=== PATIENT | female | born 1990 | race Caucasian/White ===

== ENCOUNTER 2024-11-08 05:21 | Observation (INO) | payer BC, SELFPAY ==
[2024-11-08] VITALS (7 sets, daily range): BP systolic 104–131; BP diastolic 60–89; PULSE 62–86; RESP 14–28; TEMP 36.1–36.8; O2SAT 99–100; BMI 24.9
--- NOTE | ~2024-11-08 | CT_ITS ---
CLINICAL INDICATION: Epigastric pain COMPARISON: None. TECHNIQUE: Multiple contiguous axial images of the abdomen and pelvis were performed following the ad ministration of with 100 mL Omnipaque-350 intravenous contrast The dose-length product (DLP) was 343.92 mGy-cm. Automated exposure control and iterative reconstruction technique were employed. FINDINGS/OBSERVATIONS: Visualized lower thorax: The bilateral lung bases are clear. The heart is of normal size, without pericardial effusion. Small hiatal hernia is present. Liver: The liver demonstrates homogeneous enhancement and is borderline enlarged measuring 19 cm in longitud inal dimension. Gallbladder and biliary system: The gallbladder is distended, with trace surrounding inflammatory change. The common bile duct is markedly enlarged for a patient of this age measuring 10.3 mm in greatest evelyn iber without a discrete stone identified. Pancreas: The pancreas enhances homogeneously without ductal dilatation. Spleen: The spleen enhances homogeneously and is not enlarged. Kidneys: The bilateral kidneys enhance symmetrically without hydronephrosis or renal calculi. Adrenal glands: Unremarkable. Gastrointestinal tract: Mural thickening within the stomach, likely secondary to underdistention. Fecal stasis within the colon. Appendix: The air-filled appendix is of normal caliber (axial series, images 109 through 124) Vasculature: Unremarkable. Lymph nodes: No pathologically enlarged or morphologically suspicious lymph nodes within the retroperitoneum or at the root of the mesentery. Pelvic structures: The bladder is minimally distended, and otherwise unremarkable. The uterus is anteverted and anteflexed. A well-circumscribed 2 cm focus of fluid attenuation, suggesting a right ovarian cyst not an uncommon finding in a patient of this age Body wall and musculoskeletal: Small fat-containing umbilical hernia. No significant degenerative disease within the lower thoracic or lumbosacral spine. IMPRESSION: Gallbladder distention with dilatation of the common bile duct (possibly artifactual) for which confi rmation with ultrasound is needed. Reviewed, dictated and finalized at location [] IMPRESSION: Gallbladder distention with dilatation of the common bile duct (possibly artifa ctual) for which confirmation with ultrasound is needed.
--- NOTE | ~2024-11-08 | US_ITS ---
EXAMINATION: US abdomen limited DATE: 11/08/2024 08:19 INDICATION: Right upper quadrant abdominal pain TECHNIQUE: Multiple grayscale and Doppler ultrasound images of the abdomen were obtained. COMPARISON: None FINDINGS: The pancreatic head and body are normal in appearance. The pancreatic tail is not visualized. Liver has normal echogenicity and contour, with a smooth surface. No liver lesion identified. No intrahepat ic biliary duct dilation suspected. Portal venous flow was seen in the hepatopetal, normal direction and has normal Doppler waveform. Multiple echogenic and shadowing gallstones in the dependent aspect of the gallbladder which appears otherwise normal with no evident wall thickening. The common bile du ct measures 6 mm in diameter which is at the upper limits of normal. Sonographic Ness sign was repo rted as negative by the geological science teacher although patient was reportedly on analgesics which decreases sen sitivity. Visualized portion of the right kidney demonstrates normal contour and echogenicity with no hydronephrosis. IMPRESSION: 1. Cholelithiasis within an otherwise normal-appearing gallbladder. There is a significant negative s onographic Ness's sign however sensitivity is decreased by analgesics and if there is increased cli nical concern for acute cholecystitis could consider HIDA scan for further evaluation. 2. Common bile duct at the upper limits of normal. Correlate with liver function tests and could cons ider MRCP for further evaluation as clinically indicated. Reviewed, dictated and finalized at location A. IMPRESSION: 1. Cholelithiasis within an otherwise normal-appearing gallbladder. There is a significant negative sonographic Ness's sign however sensitivity is decreased by analgesics and if there is increased clinical concern for acute cholecystit is could consider HIDA scan for further evaluation. 2. Common bile duct at the upper limits of normal. Correlate with liver functio n tests and could consider MRCP for further evaluation as clinically indicated.
--- OUTSIDE RECORDS SUMMARY | 2024-11-08 05:23 | XMS_ITS | Clinical Summary ---
Author Organization [facility] Address [address] [place] [address] Care Team Providers Care S[employer] Enterprise Portal Consultant Name Role Phone Ranjit Herrera MD Primary Care Provider [phone]- [phone] Allergies No known active allergies Medications etonogestreL (Nexplanon) 68 mg Implant Inject by subcutaneous injection. Active famotidine (PEPCID) 20 mg tabletIndicatio ns:Gastroesopha geal reflux disease without esophagitis Take 1 Tablet (20 mg) by mouth 2 times daily. 200 Tablet 3 12/08/19 24 Active FLUoxetine (PROzac) 40 mg capsuleIndicati ons:Mild recurrent major depression Take 1 Capsule (40 mg) by mouth daily. 100 Capsule 1 08/27/19 25 Active FLUoxetine (PROzac) 20 mg capsule Take 1 Capsule (20 mg) by mouth daily. Add to 40mg daily 100 Capsule 3 08/27/19 25 Active dextroamphetami ne-amphetamine (ADDERALL) 20 mg tabletIndicatio ns:Attention deficit disorder (ADD) in adult Take 1 Tablet (20 mg) by mouth 2 times daily. Dose change Max Daily Amount: 40 mg 60 Tablet 10/31/19 25 Active dextroamphetami ne-amphetamine (ADDERALL) 20 mg tabletIndicatio ns:Attention deficit disorder (ADD) in adult Take 1 Tablet (20 mg) by mouth 2 times daily. Dose change Max Daily Amount: 40 mg 60 Tablet 09/25/19 25 025 Discontin ued(Reord er) Active Problems Patient Care Coordination No te Formatting of this note migh t be different from the original. Physical - 01/27 Steel Erector - Hulsen Problem Noted Date Diagnosed Date Attention deficit disorder (ADD) in adult 2024 Mild recurrent major depression 10/07/2016 Tobacco use 10/07/2016 Resolved Problems Problem Noted Date Diagnosed Date Resolved Date Overweight (BMI 25.0-29.9) 10/09/2017 0 01/19/2021 Encounters Date Type Department Care Team Description 10/30/[address] [place] [address] Ranjit Herrera MD Attention deficit disorder (ADD) in adult 10/22/2024 External Device Data STL ABSTRACTION Provider, Abstract 09/25/2024 External Device Data STL ABSTRACTION Provider, Abstract 09/25/2024 External Device Data STL ABSTRACTION Provider, Abstract 09/24/2024 [facility] Internal Medicine [facility] [id number] [place] [id number] Ranjit Herrera MD Attention deficit disorder (ADD) in adult 09/14/2024 External Device Data STL ABSTRACTION Provider, Abstract 09/13/2024 External Device Data STL ABSTRACTION Provider, Abstract 09/11/2024 External Device Data STL ABSTRACTION Provider, Abstract 08/28/2024 External Device Data STL ABSTRACTION Provider, Abstract 08/27/2024 2:00 PM CLINICAL SERVICES DIRECTOR Video Visit [address] [place] [address] Ranjit Herrera MD Mild recurrent major depression (Primary Dx); Wellness examination; Declined influenza vaccine; Tobacco use; Acute bronchitis, unspecified organism; Attention deficit disorder (ADD) in adult 08/13/2024 [facility] Internal Medicine [facility] [id number] [address] Ranjit Herrera MD Attention deficit disorder (ADD) in adult from Last 3 Months Immunizations Immunization Administration Dates Next Due (PFIZER)(12 YR UP) COVID-19 VACCINE - EMERGENCY USE AUTHORIZATION, MRNA, [id number](PF) 30 MCG/0.3 ML IM SUSP 04/30/2021,04/09/2021 Family History Medical History Relation Name Comments Hypertension Brother 2 Alex Hypertension Father Depression Mother Angela Hypertension Mother Angela Thyroid Disease Mother Angela Relation Name Status Comments Brother 1 Alive Brother 2 Alex Father Alive Maternal Grandfather Maternal Grandmother Mother Angela Alive Paternal Grandfather Paternal Grandmother Social History Tobacco Use Types Packs/Day Years Used Date Smoking Tobacco: Former Cigarettes Passive Smoke Exposure: Past Smokeless Tobacco: Never Tobacco Cessation:Counseling Given: Yes Alcohol Use Standard Drinks/Week Comments Not Currently 1 (1 standard drink = 0.6 oz pur e alcohol) Comments No Sex and Gender Information Value Date Recorded Sex Assigned at Not on file Legal Sex Female 4:48 PM CLINICAL SERVICES DIRECTOR Gender Identity Not on file Sexual Orientation Not on file Last Filed Vital Signs Vital Sign Reading Time Taken Comments Blood Pressure 92/70 08/30/2023 4:03 PM CLINICAL SERVICES DIRECTOR Pulse 103 08/30/2023 4:03 PM CLINICAL SERVICES DIRECTOR Temperature 37 C (98.6 F) 08/30/2023 4:03 PM CLINICAL SERVICES DIRECTOR Respiratory Rate - - Oxygen Saturation 96% 08/30/2023 4:03 PM CLINICAL SERVICES DIRECTOR Inhaled Oxygen Concentration - - Weight 80.3 kg (177 lb) 08/27/2024 1:48 PM CLINICAL SERVICES DIRECTOR Height 167.6 cm (5' 6 ) 08/27/2024 1:48 PM CLINICAL SERVICES DIRECTOR Body Mass Index 28.57 08/27/2024 1:48 PM CLINICAL SERVICES DIRECTOR Plan of Treatment Health Maintenance Due Date Last Done Comments DTAP/TDAP/TD VACCINES (1 - Tdap) 2010 HEPATITIS B VACCINES (1 of 3 - 19+ 3-dose series) 2010 HPV/Cotest (21-29) 01/10/2012 HPV/Cotest (30-65) 2021 CERVICAL CANCER SCREENING 04/09/2023 PAP SMEAR 04/09/2023 04/09/2020 (Prev iously completed), 01/08/2016 COVID-19 Vaccine (3 - 2023- season) 2024 04/30/2021, 04/09/2021 Preventative Visit- Commercial 07/10/2024 01/19/2021, 11/20/2018, 10/09/2017, Additional history exists INFLUENZA VACCINE Completed 08/27/2024 HPV VACCINES Aged Out No longer eligi ble based on patient's age to complete this topic Insurance BCBS BLUE ACCESS/TRUE BLUE PPO Care Teams S[employer] Enterprise Portal Consultant Relationship Specialty Start Date End Date Ranjit Herrera MD PCP - General Internal Medicine 10/07/16
[2024-11-08 05:57] LABS: Basophils Absolute Auto 0.1 K/mm3 (0.0-0.1); Basophils Percent Auto 0.9 % (0.2-1.2); Eosinophils Absolute Auto 0.5 K/mm3 (0-0.3); Eosinophils Percent Auto 4.9 % (0-4.4); Hematocrit 38.7 % (37.0-47.0); Hemoglobin 12.1 g/dL (12.0-15.0); Immature Granulocyte Absolute 0.03 K/mm3 (0.00-0.031); Immature Granulocyte Percent A 0.3 % (0-0.5); Lymphocytes Absolute Auto 2.58 K/mm3 (0.9-3.2); Lymphocytes Percent Auto 27.5 % (18.3-44.2); Mean Corpuscular HGB Conc 31.3 g/dl (32-36); Mean Corpuscular Hemoglobin 28.9 pg (26-34); Mean Corpuscular Volume 92.6 fl (80-100); Mean Platelet Volume 10.1 fl (7.4-10.4); Monocytes Absolute Auto 0.5 K/mm3 (0.1-0.6); Monocytes Percent Auto 5.2 % (2.6-8.5); Neutrophils Absolute Auto 5.7 K/mm3 (1.3-6.7); Neutrophils Percent Auto 61.2 % (45.5-73.1); Platelet Count Result 307 k/mm3 (150-375); Red Blood Count 4.18 M/mm3 (4.2-5.4); Red Cell Distribution Width 13.8 % (11.5-14.5); White Blood Count 9.4 K/mm3 (4.5-10.0)
--- NOTE | 2024-11-08 05:58 | PC.NURSE ---
Pt ambulatory to bathroom with steady gait.
[2024-11-08 06:07] LABS: Alanine Aminotransferase 15 U/L (6-35); Albumin Level 3.7 g/dL (3.5-5.1); Alkaline Phosphatase 73 U/L (38-126); Anion Gap 10 mmol/L (4-12); Aspartate Amino Transferase 16 U/L (14-36); Bilirubin,Total 0.3 mg/dL (0.2-1.3); Blood Urea Nitrogen 7 mg/dL (7-17); Calcium 8.7 mg/dL (8.4-10.2); Carbon Dioxide 22 mmol/L (22-30); Chloride 104 mmol/L (98-107); Estimated CRCL calculation 84 ml/min; Estimated Glomerular Filt Rate > 60; Glucose 126 mg/dL (65-110); Lipase 163 U/L (23-300); Magnesium 1.9 mg/dL (1.6-2.3); Potassium 3.1 mmol/L (3.4-5.0); Sodium 136 mmol/L (137-145)
[2024-11-08 06:12] LABS: BEDSIDEPREGUCG Negative (Negative)
[2024-11-08 06:33] LABS: Add Urine Microscopic? NO; Appearance Urine Clear (Clear); Bilirubin Urine Negative (Negative); Blood Urine Negative (Negative); Color Urine Yellow (Yellow); Glucose Urine UA Negative (Negative); Ketones Urine Negative (Negative); Leukocyte Esterase Ur Negative LEU/UL (Negative); Nitrate Urine Negative (Negative); Protein Urine Negative (Negative); Specific Grav Ur 1.016 (1.001-1.035)
[2024-11-08] MEDS: ONDANSETRON INJ 4 MG/2 ML VIAL IV PUSH (06:34)
[2024-11-08] MEDS: SODIUM CHLORIDE 0.9% IV 1,000 ML 999 ML IV CONT (06:34)
[2024-11-08] MEDS: MORPHINE SULFATE (*CRX) 4 MG/ML INJ IV PUSH (06:34)
--- OUTSIDE RECORDS SUMMARY | 2024-11-08 06:36 | XMS_ITS | Clinical Summary ---
Author Organization [facility] Address [address] [place] [address] Care Team Providers Care Ceramic Design Engineer Name Role Phone Ranjit Herrera MD Primary Care Provider [phone]- [phone] Allergies No known active allergies Medications etonogestreL [...] different from the original. Physical - 01/27 Motor Adjuster - Hulsen Problem Noted Date Diagnosed Date Attention deficit disorder (ADD) in adult 2024 Mild recurrent major depression 10/07/2016 Tobacco use 10/07/2016 Resolved Problems Problem Noted Date Diagnosed Date Resolved Date Overweight (BMI 25.0-29.9) 10/09/2017 0 01/19/2021 Encounters Date Type Department Care Team Description 10/30/[address] [place] [address] Ranjti Herrera MD Attention deficit disorder (ADD) in adult 10/22/2024 External Device Data STL ABSTRACTION Provider, Abstract 09/25/2024 External Device Data STL ABSTRACTION Provider, Abstract 09/25/2024 External Device Data STL ABSTRACTION Provider, Abstract 09/24/2024 [facility] Internal Medicine [facility] [id number] [place] [phone] Ranjit Herrera MD Attention deficit disorder (ADD) in adult 09/14/2024 External Device Data STL ABSTRACTION Provider, Abstract 09/13/2024 External Device Data STL ABSTRACTION Provider, Abstract 09/11/2024 External Device Data STL ABSTRACTION Provider, Abstract 08/28/2024 External Device Data STL ABSTRACTION Provider, Abstract 08/27/2024 2:00 PM TRASH COLLECTOR SUPERVISOR Video Visit [address] [place] [address] Ranjit Herrera MD Mild recurrent major depression (Primary Dx); Wellness examination; Declined influenza vaccine; Tobacco use; Acute bronchitis, unspecified organism; Attention deficit disorder (ADD) in adult 08/13/2024 [facility] Internal Medicine [facility] [id number] [address] Ranjit Herrera MD Attention deficit disorder (ADD) in adult from Last 3 Months Immunizations Immunization Administration Dates Next Due (PFIZER)(12 YR UP) COVID-19 VACCINE - EMERGENCY USE AUTHORIZATION, MRNA, [id number](PF) 30 MCG/0.3 ML IM SUSP 04/30/2021,04/09/2021 Family [...] on file Legal Sex Female 4:48 PM TRASH COLLECTOR SUPERVISOR Gender Identity Not on file Sexual Orientation Not on file Last Filed Vital Signs Vital Sign Reading Time Taken Comments Blood Pressure 92/70 08/30/2023 4:03 PM TRASH COLLECTOR SUPERVISOR Pulse 103 08/30/2023 4:03 PM TRASH COLLECTOR SUPERVISOR Temperature 37 C (98.6 F) 08/30/2023 4:03 PM TRASH COLLECTOR SUPERVISOR Respiratory Rate - - Oxygen Saturation 96% 08/30/2023 4:03 PM TRASH COLLECTOR SUPERVISOR Inhaled Oxygen Concentration - - Weight 80.3 kg (177 lb) 08/27/2024 1:48 PM TRASH COLLECTOR SUPERVISOR Height 167.6 cm (5' 6 ) 08/27/2024 1:48 PM TRASH COLLECTOR SUPERVISOR Body Mass Index 28.57 08/27/2024 1:48 PM TRASH COLLECTOR SUPERVISOR Plan of Treatment Health Maintenance Due Date [...] BCBS BLUE ACCESS/TRUE BLUE PPO Care Teams Ceramic Design Engineer Relationship Specialty Start Date End Date Ranjit Herrera MD PCP - General Internal Medicine 10/07/16
[2024-11-08] MEDS: FAMOTIDINE 20 MG/2 ML VIAL IV PUSH (06:51)
--- NOTE | 2024-11-08 06:52 | ED_ITS ---
HPI - Abdominal Pain General Chief Complaint: Abdominal Pain <Alla Clay MD - Last Filed: 11/08/24 19:00> Stated Complaint: abd pain <Alla Clay MD - Last Filed: 11/08/24 19:00> Time Seen by Provider: 11/08/24 05:28 <Alla Clay MD - Last Filed: 11/08/24 19:00> History of Present Illness HPI narrative: Patient is a 34-year-old female who comes to the emergency department this morning complaining of epigastric pain and right upper quadrant pain. Denies any history of gallbladder disease. Admits to nausea but denies any vomiting episodes. Denies any recent illness, fevers or chills, and denies any urinary symptoms. There are no additional modifying, alleviating, or precipitating factors at this time. <Alla Clay MD - Last Filed: 11/08/24 19:00> Related Data Home Medications: Home Medications ?Medication ?Instructions ?Recorded ?Confirmed ?Last Taken ?Type dextroamphetamine-amphetamine 20 20 mg PO DAILY 11/08/24 11/08/24 11/07/24 History mg tablet famotidine 20 mg tablet 20 mg PO DAILY 11/08/24 11/08/24 11/07/24 History fluoxetine 20 mg capsule 20 mg PO DAILY 11/08/24 11/08/24 11/07/24 History fluoxetine 40 mg capsule 40 mg PO DAILY 11/08/24 11/08/24 11/07/24 History <Alla Clay MD - Last Filed: 11/08/24 19:00> Allergies/Adverse Reactions: Allergies Allergy/AdvReac Type Severity Reaction Status Date / Time No Known Allergies Allergy Unverified 11/08/24 05:22 <Alal Clay MD - Last Filed: 11/08/24 19:00> Review of Systems 2 Review of Systems: All systems are reviewed and are negative unless stated otherwise in the HPI. <Alla Clay MD - Last Filed: 11/08/24 19:00> PMFSH Social History Social History: Social History Smoking status: Never smoker Alcohol intake: never Substance use: never Substance use type: does not use Other substance usage details: uses nicotine vape Do You Feel Safe in your Home?: Yes Lack of Transportation: No Lack of Food: Never True Current Housing: I Have Housing Concerned About Future Housing: No Difficulty Paying Gas/Electric Bills: No Difficulty Paying for Meds: No Currently Unemployed: No Education: Don't Know Difficulty w/ Childcare or Family Care: No Spiritual care concerns: No <Alla Clay MD - Last Filed: 11/08/24 19:00> Exam 2 Narrative: General: Alert, awake, afebrile, in moderate distress secondary to pain. HEENT: PERRL, no rhinorrhea, no post nasal drip, oropharynx clear. Neck: Trachea midline, no JVD, no lymphadenopathy. Cardiovascular: Regular rate and rhythm, no murmurs, rubs or gallops, no peripheral edema. Respiratory: Clear to auscultation bilaterally, no tachypnea, no wheezing, no rhonchi, no rubs, no respiratory distress. Abdomen: Soft, nontender, nondistended, no rebound, no guarding, no peritoneal signs. Musculoskeletal: No joint swelling or deformity, normal muscle tone. Skin: No rashes or petechia, no signs of infection. Psychiatric: Alert and oriented, normal behavior and judgment for situation. Neurological: Alert and oriented to person, place, and time. Follows all commands. No focal deficits, speech is clear and fluent. <Alla Clay MD - Last Filed: 11/08/24 19:00> Course Vital Signs Vital signs: Vital Signs Pulse Rate 86 11/08/24 05:30 Respiratory Rate 22 H 11/08/24 05:30 Blood Pressure 123/79 11/08/24 05:30 Pulse Oximetry 100 11/08/24 05:30 Oxygen Delivery Room Air 11/08/24 05:30 Temperature 96.9 F L 11/08/24 14:00 Pulse Rate 62 11/08/24 14:00 Respiratory Rate 16 11/08/24 14:00 Blood Pressure 105/66 11/08/24 14:00 Pulse Oximetry 100 11/08/24 14:00 Oxygen Delivery Room Air 11/08/24 18:34 <Alla Clay MD - Last Filed: 11/08/24 19:00> Vital Signs Pulse Rate 86 11/08/24 05:30 Respiratory Rate 22 H 11/08/24 05:30 Blood Pressure 123/79 11/08/24 05:30 Pulse Oximetry 100 11/08/24 05:30 Oxygen Delivery Room Air 11/08/24 05:30 Temperature 96.9 F L 11/08/24 14:00 Pulse Rate 62 11/08/24 14:00 Respiratory Rate 16 11/08/24 14:00 Blood Pressure 105/66 11/08/24 14:00 Pulse Oximetry 100 11/08/24 14:00 Oxygen Delivery Room Air 11/08/24 18:34 <Rebel Singh Dickey III, DO - Last Filed: 11/08/24 17:29> MDM - Abdominal Pain MDM Narrative Medical decision making narrative: The patient was evaluated by myself in the emergency department. History is obtained from patient who is an independent historian and physical exam was performed. External medical records were reviewed at this time. IV was established and pertinent tests were ordered. Patient was administered 4 mg of IV morphine for pain and 4 mg of IV Zofran for nausea. Laboratory results obtained revealing a potassium of 3.1 otherwise unremarkable. Patient was administered 4 mg of oral potassium at this time. Imaging studies obtained included CT abdomen pelvis with IV contrast which is currently pending. Differential diagnosis considerations include biliary colic, gastritis, take ulcer disease. Comorbidities impacting this visit include none. I have evaluated and discussed social determinants of health with the patient that could potentially impact subsequent diagnosis and treatment plans. Assumed care from Dr Clay [place] [address] shows dilated bile duct and wall thickening recommend sono. Pt requesting more pain meds. Fentanyl ordered. Sono shows gallstones but no evidence of cholecystitis. pt still uncomfortable Bile duct borderline large but lft's and lipase and wbc normal. Will give dose of toradol. Dr Rivera said if pain controlled ok to go home but if pain persists can admit to [facility] and he will consult after surgery today. Pt has decided she would like to stay due to pain. Discussed with Dr Munguia and agrees to admit. <Alla Clay MD - Last Filed: 11/08/24 19:00> The patient was evaluated by myself in the emergency department. History is obtained from patient who is an independent historian and physical exam was performed. External medical records were reviewed at this time. IV was established and pertinent tests were ordered. Patient was administered 4 mg of IV morphine for pain and 4 mg of IV Zofran for nausea. Laboratory results obtained revealing a potassium of 3.1 otherwise unremarkable. Patient was administered 4 mg of oral potassium at this time. Imaging studies obtained included CT abdomen pelvis with IV contrast which is currently pending. Differential diagnosis considerations include biliary colic, gastritis, take ulcer disease. Comorbidities impacting this visit include none. I have evaluated and discussed social determinants of health with the patient that could potentially impact subsequent diagnosis and treatment plans. assumed care from Dr Clay at [address] shows dilated bile duct and wall thickening recommend sono. pt requesting more pain meds. fentanyl ordered. sono shows gallstones but no evidence of cholecystitis. pt still uncomfortable Bile duct borderline large but lft's and lipase and wbc normal. will give dose of toradol. Dr Rivera said if pain controlled ok to go home but if pain persists can admit to [facility] and he will consult after surgery today. Pt has decided she would like to stay due to pain. discussed with Dr Munguia and agrees to admit. <Rebel Dickey III, - Last Filed: 11/08/24 17:29> Lab Data Result diagrams: 11/08/24 05:47 11/08/24 05:47 <Alla Clay MD - Last Filed: 11/08/24 19:00> Labs: Lab Results 11/08/24 11/08/24 11/08/24 Range/Units 05:47 06:05 06:10 WBC 9.4 (4.5-10.0) K/mm3 RBC 4.18 L (4.2-5.4) M/mm3 Hgb 12.1 (12.0-15.0) g/dL Hct 38.7 (37.0-47.0) % MCV 92.6 (80-100) fl MCH 28.9 (26-34) pg MCHC 31.3 L (32-36) g/dl RDW 13.8 (11.5-14.5) % Plt Count 307 (150-375) k/mm3 MPV 10.1 (7.4-10.4) fl Immature Gran % (Auto) 0.3 (0-0.5) % Neut % (Auto) 61.2 (45.5-73.1) % Lymph % (Auto) 27.5 (18.3-44.2) % [place] % (Auto) 5.2 (2.6-8.5) % Eos % (Auto) 4.9 H (0-4.4) % Baso % (Auto) 0.9 (0.2-1.2) % Lymph # (Auto) 2.58 (0.9-3.2) K/mm3 [place] # (Auto) 0.5 (0.1-0.6) K/mm3 Eos # (Auto) 0.5 H (0-0.3) K/mm3 Baso # (Auto) 0.1 (0.0-0.1) K/mm3 Abs Immat Gran (auto) 0.03 (0.00-0.031) K/mm3 Absolute Neuts (auto) 5.7 (1.3-6.7) K/mm3 Absolute Nucleated RBC 0.000 (0.0-0.012) K/mm3 Nucleated RBC % 0.0 (0.0-0.2) % Sodium 136 L (137-145) mmol/L Potassium 3.1 L (3.4-5.0) mmol/L Chloride 104 (98-107) mmol/L Carbon Dioxide 22 (22-30) mmol/L Anion Gap 10 (4-12) mmol/L BUN 7 (7-17) mg/dL Creatinine 0.77 (0.7-1.0) mg/dL Estim Creat Clear Calc 84 ml/min Estimated GFR > 60 (59 - ) Glucose 126 H (65-110) mg/dL Calcium 8.7 (8.4-10.2) mg/dL Magnesium 1.9 (1.6-2.3) mg/dL Total Bilirubin 0.3 (0.2-1.3) mg/dL AST 16 (14-36) U/L ALT 15 (6-35) U/L Alkaline Phosphatase 73 (38-126) U/L Total Protein 7.0 (6.3-8.2) g/dL Albumin 3.7 (3.5-5.1) g/dL Lipase 163 (23-300) U/L Urine Color Yellow (Yellow) Urine Appearance Clear (Clear) Urine pH 6.0 (5.0-9.0) Ur Specific Scenic 1.016 (1.001-1.035) Urine Protein Negative (Negative) mg/dL Urine Glucose (UA) Negative (Negative) mg/dL Urine Ketones Negative (Negative) mg/dL Ur Blood (Man) Negative (Negative) Urine Nitrate Negative (Negative) Urine Bilirubin Negative (Negative) Urine Urobilinogen 1.0 (<2.0) mg/dL Leukocyte Esterase Rfl Negative (Negative) BRINDA/UL POC Urine HCG, Qual Negative (Negative) <Alla Clay MD - Last Filed: 11/08/24 19:00> Lab Results 11/08/24 11/08/24 11/08/24 Range/Units 05:47 06:05 06:10 WBC 9.4 (4.5-10.0) K/mm3 RBC 4.18 L (4.2-5.4) M/mm3 Hgb 12.1 (12.0-15.0) g/dL Hct 38.7 (37.0-47.0) % MCV 92.6 (80-100) fl MCH 28.9 (26-34) pg MCHC 31.3 L (32-36) g/dl RDW 13.8 (11.5-14.5) % Plt Count 307 (150-375) k/mm3 MPV 10.1 (7.4-10.4) fl Immature Gran % (Auto) 0.3 (0-0.5) % Neut % (Auto) 61.2 (45.5-73.1) % Lymph % (Auto) 27.5 (18.3-44.2) % [place] % (Auto) 5.2 (2.6-8.5) % Eos % (Auto) 4.9 H (0-4.4) % Baso % (Auto) 0.9 (0.2-1.2) % Lymph # (Auto) 2.58 (0.9-3.2) K/mm3 [place] # (Auto) 0.5 (0.1-0.6) K/mm3 Eos # (Auto) 0.5 H (0-0.3) K/mm3 Baso # (Auto) 0.1 (0.0-0.1) K/mm3 Abs Immat Gran (auto) 0.03 (0.00-0.031) K/mm3 Absolute Neuts (auto) 5.7 (1.3-6.7) K/mm3 Absolute Nucleated RBC 0.000 (0.0-0.012) K/mm3 Nucleated RBC % 0.0 (0.0-0.2) % Sodium 136 L (137-145) mmol/L Potassium 3.1 L (3.4-5.0) mmol/L Chloride 104 (98-107) mmol/L Carbon Dioxide 22 (22-30) mmol/L Anion Gap 10 (4-12) mmol/L BUN 7 (7-17) mg/dL Creatinine 0.77 (0.7-1.0) mg/dL Estim Creat Clear Calc 84 ml/min Estimated GFR > 60 (59 - ) Glucose 126 H (65-110) mg/dL Calcium 8.7 (8.4-10.2) mg/dL Magnesium 1.9 (1.6-2.3) mg/dL Total Bilirubin 0.3 (0.2-1.3) mg/dL AST 16 (14-36) U/L ALT 15 (6-35) U/L Alkaline Phosphatase 73 (38-126) U/L Total Protein 7.0 (6.3-8.2) g/dL Albumin 3.7 (3.5-5.1) g/dL Lipase 163 (23-300) U/L Urine Color Yellow (Yellow) Urine Appearance Clear (Clear) Urine pH 6.0 (5.0-9.0) Ur Specific Scenic 1.016 (1.001-1.035) Urine Protein Negative (Negative) mg/dL Urine Glucose (UA) Negative (Negative) mg/dL Urine Ketones Negative (Negative) mg/dL Ur Blood (Man) Negative (Negative) Urine Nitrate Negative (Negative) Urine Bilirubin Negative (Negative) Urine Urobilinogen 1.0 (<2.0) mg/dL Leukocyte Esterase Rfl Negative (Negative) BRINDA/UL POC Urine HCG, Qual Negative (Negative) <Rebel Dickey III, DO - Last Filed: 11/08/24 17:29> Imaging Data Radiologist's impression: ITS Impressions Abdomen/Pelvis CT 11/08/24 07:43 IMPRESSION: Gallbladder distention with dilatation of the common bile duct (possibly artifactual) for which confirmation with ultrasound is needed. Abdomen Ultrasound 11/08/24 08:52 IMPRESSION: 1. Cholelithiasis within an otherwise normal-appearing gallbladder. There is a significant negative sonographic Ness's sign however sensitivity is decreased by analgesics and if there is increased clinical concern for acute cholecystitis could consider HIDA scan for further evaluation. 2. Common bile duct at the upper limits of normal. Correlate with liver function tests and could consider MRCP for further evaluation as clinically indicated. <Alla Clay MD - Last Filed: 11/08/24 19:00> ITS Impressions Abdomen/Pelvis CT 11/08/24 07:43 IMPRESSION: Gallbladder distention with dilatation of the common bile duct (possibly artifactual) for which confirmation with ultrasound is needed. Abdomen Ultrasound 11/08/24 08:52 IMPRESSION: 1. Cholelithiasis within an otherwise normal-appearing gallbladder. There is a significant negative sonographic Ness's sign however sensitivity is decreased by analgesics and if there is increased clinical concern for acute cholecystitis could consider HIDA scan for further evaluation. 2. Common bile duct at the upper limits of normal. Correlate with liver function tests and could consider MRCP for further evaluation as clinically indicated. <Rebel Dickey III, DO - Last Filed: 11/08/24 17:29> Discharge Plan Discharge Clinical Impression: Cholelithiasis <Alla Clay MD - Last Filed: 11/08/24 19:00> Patient Disposition: Still a Patient <Alla Clay MD - Last Filed: 11/08/24 19:00> Condition: Stable <Alla Clay MD - Last Filed: 11/08/24 19:00>
--- NOTE | 2024-11-08 07:00 | PC.NURSE ---
pt taken to CT in stretcher by tech
[2024-11-08] MEDS: POTASSIUM CHLORIDE 20 MEQ PACKET (FOR LIQUID) 40 MEQ PO (07:09)
[2024-11-08] MEDS: fentaNYL CITRATE INJ (*CRX) 100 MCG/2 ML VIAL 50 MCG IV PUSH (07:51)
[2024-11-08] MEDS: KETOROLAC 15 MG/ML VIAL (*BKC) IV PUSH (09:47)
--- NOTE | 2024-11-08 09:56 | PC.NURSE ---
Pt medicated for pain. Dr. Dickey discussed POC.
--- NOTE | 2024-11-08 12:46 | ADMGEN ---
This patient, Nelly Tsai, was admitted to 3 [facility] Surg Room 309-01. Patient/family oriented to hospital policies and general routines including ID bracelet, bed and alarms, visiting hours, pain management, procedures, bathroom and other care routines, personal items, smoking policy, room service/diet, and visiting hours. Information on how to activate the Rapid Response Team has been discussed. Patient/Family are encouraged to report perceived risks to care and to ask questions if they do not understand what they are told or what they should do.
[2024-11-08] MEDS: LACTATED RINGERS 1,000 ML 125 ML IV CONT (13:03)
--- NOTE | 2024-11-08 14:47 | P.HP_ITS ---
H&P: HPI History of Present Illness Date/Time: 11/08/24 14:47 Chief Complaint: ABd pain Narrative: 34 yo F with the PMH GERD, Depression and ADHD who presented to the ER on account of Abd pain, noted she was in her usual state of health until midnight when she started having abd pain, upper region, sharp, 8/10 in intensity, constant and worsening, prompting presentation to the ER. no vomiting, diarrhea, chest pain, SOB, dysuria or focal deficits. ER eval vital signs stable and wnl, labs notable for K 3.1, CT AP gallbladder with dilation of the common bile duct. US abd negative Ness's sign, with CBD a t the upper limit of normal. Gen surgery was consulted and they will evaluate patient for possible lap ron. Review of Systems Review of Systems: All other systems were reviewed and negative except as noted in the HPI above PMFSH Social History Social History Alcohol intake: never Substance use: never Substance use type: does not use Other substance usage details: uses nicotine vape Do You Feel Safe in your Home?: Yes Lack of Transportation: No Lack of Food: Never True Current Housing: I Have Housing Concerned About Future Housing: No Difficulty Paying Gas/Electric Bills: No Difficulty Paying for Meds: No Currently Unemployed: No Education: Don't Know Difficulty w/ Childcare or Family Care: No Spiritual care concerns: No Meds Home Medications and Allergies Home Medications ?Medication ?Instructions ?Recorded ?Confirmed ?Type dextroamphetamine-amphetamine 20 20 mg PO DAILY 11/08/24 11/08/24 History mg tablet famotidine 20 mg tablet 20 mg PO DAILY 11/08/24 11/08/24 History fluoxetine 20 mg capsule 20 mg PO DAILY 11/08/24 11/08/24 History fluoxetine 40 mg capsule 40 mg PO DAILY 11/08/24 11/08/24 History Allergies Allergy/AdvReac Type Severity Reaction Status Date / Time No Known Allergies Allergy Unverified 11/08/24 05:22 Vital Signs Vital Signs - 24 hr 11/08/24 05:30 11/08/24 06:37 11/08/24 07:45 Temperature 98.2 F Pulse Rate 86 80 75 Respiratory Rate 22 H 28 H 15 Blood Pressure 123/79 124/86 108/70 Pulse Oximetry 100 100 100 Oxygen Delivery Room Air 11/08/24 09:00 11/08/24 12:06 Temperature 98.1 F 98.3 F Pulse Rate 67 66 Respiratory Rate 14 16 Blood Pressure 131/89 104/67 Pulse Oximetry 99 100 Oxygen Delivery Exam Narrative: General: alert and comfortable Eyes: EOMI, PERRLA ENNT External ears normal, Neck is supple, no masses, Respiratory systems: Clear to auscultation Cardiovascular S1, S2, normal rhythm, no murmur, rub, or gallop; no thrill or palpable murmurs on palpation. Gastrointestinal: soft, positive Ness's sign, and non-distended abdomen with no masses; BS present Skin: no rash, lesions, ulcerations, subcutaneous nodules or induration Musculoskeletal: no abnormality and no tenderness, normal ROM Neurologic: Alert and oriented x3, non focal Mental Status Exam: normal affect H&P: Results Labs Labs: Short CBC 11/08/24 Range/Units 05:47 WBC 9.4 (4.5-10.0) K/mm3 Hgb 12.1 (12.0-15.0) g/dL Hct 38.7 (37.0-47.0) % Plt Count 307 (150-375) k/mm3 BMP 11/08/24 05:47 Sodium 136 L Potassium 3.1 L Chloride 104 Carbon Dioxide 22 BUN 7 Creatinine 0.77 Glucose 126 H Calcium 8.7 Liver Function 11/08/24 Range/Units 05:47 Total Bilirubin 0.3 (0.2-1.3) mg/dL AST 16 (14-36) U/L ALT 15 (6-35) U/L Alkaline Phosphatase 73 (38-126) U/L Albumin 3.7 (3.5-5.1) g/dL Urine 11/08/24 Range/Units 06:05 Urine Color Yellow (Yellow) Urine Appearance Clear (Clear) Urine pH 6.0 (5.0-9.0) Ur Specific [place] 1.016 (1.001-1.035) Urine Protein Negative (Negative) mg/dL Urine Glucose (UA) Negative (Negative) mg/dL Assessment and Plan Assessment and plan (1) Cholelithiasis: Code(s): K80.20 - Calculus of gallbladder without cholecystitis without obstruction Status: Acute Plan Cholelithiasis with RUQ pain CT AP showed gallbladder distention with dilatation of the common bile duct US showed Cholelithiasis with otherwise normal GB Positive Ness's sign HIDA scan ordered Blood culture, Levaquin and Flagyl Depression, ADHD NPO, restart once patient is po DVT prophylaxis on Sq Lovenox Full code [facility] Hospital[facility] MIPS Advance Care Plan I have confirmed that the patient's Advanced Care Plan is present, code status is documented, or surrogate decision maker is listed in patient medical record.: Yes Medication Reconciliation I have utilized all available resources to obtain, update and review the patients current medications (includes all prescriptions, OTC, herbals, cannabis, and nutritional supplements).: Yes
[2024-11-08] MEDS: metroNIDAZOLE 500 MG/ISO 100ML 500 MG/100 ML BAG 100 MG IVPB ×2 (16:28→21:33)
[2024-11-08] MEDS: SODIUM CHLORIDE 0.9% IV 1,000 ML 75 ML IV CONT (16:32)
[2024-11-08] MEDS: levoFLOXacin 750 MG/D5W 150 ML 750 MG/150 ML BAG 100 MG IVPB (17:53)
[2024-11-09] MEDS: metroNIDAZOLE 500 MG/ISO 100ML 500 MG/100 ML BAG 100 MG IVPB ×2 (05:29→14:12)
[2024-11-09 06:00] VITALS: BP 100/62; PULSE 86; RESP 18; TEMP 36.6; O2SAT 100
[2024-11-09] MEDS: SODIUM CHLORIDE 0.9% IV 1,000 ML 75 ML IV CONT (09:17)
--- NOTE | 2024-11-09 12:39 | P.CONS_ITS ---
Assessment and Plan Assessment and plan (1) Cholelithiasis: Code(s): K80.20 - Calculus of gallbladder without cholecystitis without obstruction Status: Acute Assessment and Plan: Patient had right upper quadrant pain and has gallstones on abdominal ultrasound. No other evidence of acute cholecystitis on imaging. Common bile duct is at upper limits of normal but no common bile duct stone is seen either on ultrasound or CT scan. Seems to have symptomatic cholelithiasis. (2) RUQ pain: Code(s): R10.11 - Right upper quadrant pain Status: Acute Assessment and Plan: Likely due to her gallstones. Pain was not controlled in the emergency room she was admitted to the hospital. Continue bowel rest for today. Pain is better tomorrow then can consider discharge with plan for outpatient cholecystectomy due to her symptomatic cholelithiasis. Continue Levaquin for now. HPI Data of Consult Date/Time: 11/08/24 Requesting Physician: Simeon Munguia MD Primary Care Provider: UNKNOWN,DOCTOR Consult Narrative Reason for consult: Right upper quadrant abdominal pain, cholelithiasis Narrative: Nelly Tsai is a 34 year old female admitted to the hospital through the emergency room with history of several hours duration of severe right upper quadrant abdominal pain. In the emergency room white blood count is normal. Liver enzymes are normal as well. She had abdominal ultrasound showed a dilated gallbladder without gallbladder wall thickening. Gallstones are noted. No pericholecystic fluid was noted. Common bile duct was at the upper limits of normal. No stone was seen in the common bile duct. CT scan now showed dilated gallbladder without kailyn cholecystic inflammatory changes. She is admitted to the hospital and this evening she is still having mild right upper quadrant pain. She did take some pain medicine. There is no nausea vomiting. No fever. She states this is the 1st episode severe pain. In the past several weeks and months she has noticed having some indigestion. No radiation pain to her back. No abdominal bloating after eating. No nausea after eating. Her symptoms are not always associated with eating. Her only previous abdominal surgery is a C- section about 10 years ago. Review of Systems 2 Review of Systems: The remainder of the review of systems to include constitutional, HEENT, cardiovascular, respiratory, GI, , integumentary, musculoskeletal, endocrine, immunologic, hematologic, psychiatric, and neurologic are all negative except for which is mentioned above in the HPI. [facility] Social History Social History Smoking status: Never smoker Alcohol intake: never Substance use: never Substance use type: does not use Other substance usage details: uses nicotine vape Do You Feel Safe in your Home?: Yes Lack of Transportation: No Lack of Food: Never True Current Housing: I Have Housing Concerned About Future Housing: No Difficulty Paying Gas/Electric Bills: No Difficulty Paying for Meds: No Currently Unemployed: No Education: Don't Know Difficulty w/ Childcare or Family Care: No Spiritual care concerns: No Meds Home Medications and Allergies Home Medications ?Medication ?Instructions ?Recorded ?Confirmed ?Type dextroamphetamine-amphetamine 20 20 mg PO DAILY 11/08/24 11/08/24 History mg tablet famotidine 20 mg tablet 20 mg PO DAILY 11/08/24 11/08/24 History fluoxetine 20 mg capsule 20 mg PO DAILY 11/08/24 11/08/24 History fluoxetine 40 mg capsule 40 mg PO DAILY 11/08/24 11/08/24 History Allergies Allergy/AdvReac Type Severity Reaction Status Date / Time No Known Allergies Allergy Unverified 11/08/24 05:22 Vital Signs Vital Signs - 24 hr 11/08/24 14:00 11/08/24 18:34 11/08/24 20:00 Temperature 36.1 C L Pulse Rate 62 Respiratory Rate 16 Blood Pressure 105/66 Pulse Oximetry 100 Oxygen Delivery Room Air Room Air 11/08/24 20:10 11/09/24 06:00 11/09/24 09:00 Temperature 36.1 C L 36.6 C Pulse Rate 71 86 Respiratory Rate 18 18 Blood Pressure 113/60 100/62 Pulse Oximetry 99 100 Oxygen Delivery Room Air Exam 2 Const: General: comfortable and no acute distress HENMT: Ears: TM's normal bilaterally Face/Nose/Sinus: Normal nares present Mouth: Yes moist mucous membranes Eyes: General: appearance normal, both eyes and all related structures S clera: sclerae normal (No scleral icterus) Pupils: Equal, round and reactive pupils present EOM: EOMs intact bilaterally Neck: Neck: supple and no JVD Resp: Effort & Inspection: normal respiratory effort Auscultation: clear to auscultation bilaterally Cardio: Rate: regular rate Rhythm: regular rhythm GI: Other: Mild tenderness palpation right upper quadrant. Gallbladder is not palpable. No rebound or guarding. Well-healed scar without incisional hernia. No masses. Skin: General skin exam: normal color and no rashes or lesions noted Neuro: General: gait normal Speech: normal speech Motor exam (neuro): 5 /5 motor strength present throughout Sensory Exam: normal sensation Extrem: General: normal to inspection Psych: Mental Status: mental status grossly normal Affect: normal affect Results Labs 11/08/24 05:47 11/08/24 05:47 Imaging Radiologist's impression: Ultrasound Report Signed Patient: Nelly Tsai : 1990 MR#: [id number] Age: 34 Acct:[id number] Loc: [facility] ADM Date: 11/08/24Attending Dr: Ordering Physician: Rebel Dickey III, DO Date of Service: 11/08/24 Procedure(s): US abdomen limited Accession Number(s): [id number] cc: Rebel Dickey III, DO; UNKNOWN,DOCTOR~ EXAMINATION: US abdomen limited DATE: 11/08/2024 08:19 INDICATION: Right upper quadrant abdominal pain TECHNIQUE: Multiple grayscale and Doppler ultrasound images of the abdomen were obtained. COMPARISON: None FINDINGS: The pancreatic head and body are normal in appearance. The pancreatic tail is not visualized. Liver has normal echogenicity and contour, with a smooth surface. No liver lesion identified. No intrahepatic biliary duct dilation suspected. Portal venous flow was seen in the hepatopetal, normal direction and has normal Doppler waveform. Multiple echogenic and shadowing gallstones in the dependent aspect of the gallbladder which appears otherwise normal with no evident wall thickening. The common bile duct measures 6 mm in diameter which is at the upper limits of normal. Sonographic Ness sign was reported as negative by the call manager although patient was reportedly on analgesics which decreases sensitivity. Visualized portion of the right kidney demonstrates normal contour and echogenicity with no hydronephrosis. IMPRESSION: 1. Cholelithiasis within an otherwise normal-appearing gallbladder. There is a significant negative sonographic Ness's sign however sensitivity is decreased by analgesics and if there is increased clinical concern for acute cholecystitis could consider HIDA scan for further evaluation. 2. Common bile duct at the upper limits of normal. Correlate with liver function tests and could consider MRCP for further evaluation as clinically indicated. Reviewed, dictated and finalized at location A. CT Scan Report Signed Patient: Nelly Tsai : 1990 MR#: [id number] Age: 34 Acct:[id number] Loc: [facility] ADM Date: 11/08/24Attending Dr: Ordering Physician: Alla Clay MD Date of Service: 11/08/24 Procedure(s): CT abdomen pelvis w con Accession Number(s): [id number] cc: Alla Clay MD; Rebel Dickey III, DO; UNKNOWN,DOCTOR~ CLINICAL INDICATION: Epigastric pain COMPARISON: None. TECHNIQUE: Multiple contiguous axial images of the abdomen and pelvis were performed following the administration of with 100 mL Omnipaque-350 intravenous contrast The dose-length product (DLP) was 343.92 mGy-cm. Automated exposure control and iterative reconstruction technique were employed. FINDINGS/OBSERVATIONS: Visualized lower thorax: The bilateral lung bases are clear. The heart is of normal size, without pericardial effusion. Small hiatal hernia is present. Liver: The liver demonstrates homogeneous enhancement and is borderline enlarged measuring 19 cm in longitudinal dimension. Gallbladder and biliary system: The gallbladder is distended, with trace surrounding inflammatory change. The common bile duct is markedly enlarged for a patient of this age measuring 10.3 mm in greatest caliber without a discrete stone identified. Pancreas: The pancreas enhances homogeneously without ductal dilatation. Spleen: The spleen enhances homogeneously and is not enlarged. Kidneys: The bilateral kidneys enhance symmetrically without hydronephrosis or renal calculi. Adrenal glands: Unremarkable. Gastrointestinal tract: Mural thickening within the stomach, likely secondary to underdistention. Fecal stasis within the colon. Appendix: The air-filled appendix is of normal caliber (axial series, images 109 through 124) Vasculature: Unremarkable. Lymph nodes: No pathologically enlarged or morphologically suspicious lymph nodes within the retroperitoneum or at the root of the mesentery. Pelvic structures: The bladder is minimally distended, and otherwise unremarkable. The uterus is anteverted and anteflexed. A well-circumscribed 2 cm focus of fluid attenuation, suggesting a right ovarian cyst not an uncommon finding in a patient of this age Body wall and musculoskeletal: Small fat-containing umbilical hernia. No significant degenerative disease within the lower thoracic or lumbosacral spine. IMPRESSION: Gallbladder distention with dilatation of the common bile duct (possibly artifactual) for which confirmation with ultrasound is needed. Reviewed, dictated and finalized at location []
--- NOTE | 2024-11-09 12:46 | P.PN_ITS ---
Progress Note: A&P Assessment and Plan (1) Cholelithiasis: Code(s): K80.20 - Calculus of gallbladder without cholecystitis without obstruction Status: Acute Assessment and Plan: Patient appears to have some back cholelithiasis. Events of acute cholecystitis on CT or abdominal ultrasound. Liver enzymes are normal. Her pain is better today she wishes to go home. I think that is reasonable. We will go ahead and give her a low-fat diet and she tolerates that she can go home today. We did discuss proceeding with an elective laparoscopic cholecystectomy. She is agreeable to proceeding with that since she does not want have other episodes of pain like this. We will go ahead and have my office set her up for a elective outpatient laparoscopic cholecystectomy possible urgent open cholecystectomy in the near future. My office will contact her with scheduling information assuming she is discharged from the hospital today. She should stay on a low- fat diet. Will discharge her with oral Levaquin in case she had early acute cholecystitis. (2) RUQ pain: Code(s): R10.11 - Right upper quadrant pain Status: Acute Subjective Date/time seen: 11/09/24 12:46 Interval history: Patient doing better today. The minimal right upper quadrant pain now. Id the IV pain medications. White blood count is normal. Liver enzymes are normal. She wants to go home. Exam GI: Other: Abdomen is soft and nondistended. No tenderness to palpation right upper quadrant over the area the gallbladder. No guarding. Objective Data Vital Signs Vital Signs: Vital Signs - 24 hr 11/08/24 14:00 11/08/24 18:34 11/08/24 20:00 Temperature 36.1 C L Pulse Rate 62 Respiratory Rate 16 Blood Pressure 105/66 Pulse Oximetry 100 Oxygen Delivery Room Air Room Air 11/08/24 20:10 11/09/24 06:00 11/09/24 09:00 Temperature 36.1 C L 36.6 C Pulse Rate 71 86 Respiratory Rate 18 18 Blood Pressure 113/60 100/62 Pulse Oximetry 99 100 Oxygen Delivery Room Air Intake/Output Intake/Output: Intake & Output 11/06/24 11/07/24 11/08/24 11/09/24 23:59 23:59 23:59 23:59 Intake Total 1350 2860 Balance 1350 2860 Meds/Results Medications: Active Medications Generic Name Dose Route Start Last Admin Trade Name Freq PRN Reason Stop Dose Admin Hydromorphone HCl 0.5 mg 11/08/24 11:15 Hydromorphone Hcl Inj (*Crx) 2 Mg/Ml Vial IV PUSH Q4H PRN Pain Rated 7-10 Sodium Chloride 1,000 mls @ 75 mls/hr 11/08/24 14:50 11/09/24 09:17 Normal Saline Iv IV CONT 75 mls/hr .[id number] RACHEL Administration Levofloxacin/Dextrose 750 mg in 150 mls @ 100 mls/hr 11/08/24 15:00 11/08/24 19:23 Levaquin 750 Mg/D5w 150 Ml IVPB Infused Q24H RACHEL Infusion Metronidazole 500 mg in 100 mls @ 100 mls/hr 11/08/24 15:00 11/09/24 06:29 Flagyl 500 Mg/Iso Soln 100 Ml IVPB Infused Q8HR RACHEL Infusion Ondansetron HCl 4 mg 11/08/24 11:15 Ondansetron Inj 4 Mg/2 Ml Vial IV PUSH Q4H PRN Nausea Radiology Results: ITS Impressions Abdomen/Pelvis CT 11/08/24 07:43 IMPRESSION: Gallbladder distention with dilatation of the common bile duct (possibly artifactual) for which confirmation with ultrasound is needed. Abdomen Ultrasound 11/08/24 08:52 IMPRESSION: 1. Cholelithiasis within an otherwise normal-appearing gallbladder. There is a significant negative sonographic Ness's sign however sensitivity is decreased by analgesics and if there is increased clinical concern for acute cholecystitis could consider HIDA scan for further evaluation. 2. Common bile duct at the upper limits of normal. Correlate with liver function tests and could consider MRCP for further evaluation as clinically indicated.
[2024-11-09 14:00] VITALS: BP 112/58; PULSE 83; RESP 18; TEMP 37.2; O2SAT 97
--- NOTE | 2024-11-09 14:29 | PM.IMPN ---
Progress Note: A&P Assessment and Plan (1) Cholelithiasis: Code(s): K80.20 - Calculus of gallbladder without cholecystitis without obstruction Status: Acute Plan Cholelithiasis with RUQ pain CT AP showed gallbladder distention with dilatation of the common bile duct US showed Cholelithiasis with otherwise normal GB Positive Ness's sign Blood culture, Levaquin and Flagyl For cholecystectomy today Blood culture, Levaquin and Flagyl Gen surgery following Depression, ADHD NPO, restart once patient is po DVT prophylaxis on Sq Lovenox Full code Subjective Date/time seen: 11/09/24 14:29 Interval history: Comfortable at bedside awaiting Cholecystectomy per Gen surgery Review of Systems Review of Systems: All other systems were reviewed and negative except as noted in the HPI above Exam Narrative: General: alert and comfortable Eyes: EOMI, PERRLA ENNT External ears normal, Neck is supple, no masses, Respiratory systems: Clear to auscultation Cardiovascular S1, S2, normal rhythm, no murmur, rub, or gallop; no thrill or palpable murmurs on palpation. Gastrointestinal: soft, positive Ness's sign, and non-distended abdomen with no masses; BS present Skin: no rash, lesions, ulcerations, subcutaneous nodules or induration Musculoskeletal: no abnormality and no tenderness, normal ROM Neurologic: Alert and oriented x3, non focal Mental Status Exam: normal affect Objective Data Vital Signs Vital Signs: Vital Signs - 24 hr 11/08/24 18:34 11/08/24 20:00 11/08/24 20:10 Temperature 96.9 F L Pulse Rate 71 Respiratory Rate 18 Blood Pressure 113/60 Pulse Oximetry 99 Oxygen Delivery Room Air Room Air 11/09/24 06:00 11/09/24 09:00 Temperature 98 F Pulse Rate 86 Respiratory Rate 18 Blood Pressure 100/62 Pulse Oximetry 100 Oxygen Delivery Room Air Intake/Output Intake/Output: Intake & Output 11/06/24 11/07/24 11/08/24 11/09/24 23:59 23:59 23:59 23:59 Intake Total 1350 2860 Balance 1350 2860 Meds/Results Medications: Active Medications Generic Name Dose Route Start Last Admin Trade Name Freq PRN Reason Stop Dose Admin Hydromorphone HCl 0.5 mg 11/08/24 11:15 Hydromorphone Hcl Inj (*Crx) 2 Mg/Ml Vial IV PUSH Q4H PRN Pain Rated 7-10 Sodium Chloride 1,000 mls @ 75 mls/hr 11/08/24 14:50 11/09/24 09:17 Normal Saline Iv IV CONT 75 mls/hr .[id number] RACHEL Administration Levofloxacin/Dextrose 750 mg in 150 mls @ 100 mls/hr 11/08/24 15:00 11/08/24 19:23 Levaquin 750 Mg/D5w 150 Ml IVPB Infused Q24H RACHEL Infusion Metronidazole 500 mg in 100 mls @ 100 mls/hr 11/08/24 15:00 11/09/24 14:12 Flagyl 500 Mg/Iso Soln 100 Ml IVPB 100 mls/hr Q8HR RACHEL Administration Ondansetron HCl 4 mg 11/08/24 11:15 Ondansetron Inj 4 Mg/2 Ml Vial IV PUSH Q4H PRN Nausea Radiology Results: ITS Impressions Abdomen/Pelvis CT 11/08/24 07:43 IMPRESSION: Gallbladder distention with dilatation of the common bile duct (possibly artifactual) for which confirmation with ultrasound is needed. Abdomen Ultrasound 11/08/24 08:52 IMPRESSION: 1. Cholelithiasis within an otherwise normal-appearing gallbladder. There is a significant negative sonographic Ness's sign however sensitivity is decreased by analgesics and if there is increased clinical concern for acute cholecystitis could consider HIDA scan for further evaluation. 2. Common bile duct at the upper limits of normal. Correlate with liver function tests and could consider MRCP for further evaluation as clinically indicated.
[2024-11-09] MEDS: levoFLOXacin 750 MG/D5W 150 ML 750 MG/150 ML BAG 100 MG IVPB (15:36)
--- NOTE | 2024-11-09 17:06 | P.DS_ITS ---
DS: Admitting Diagnosis Discharge Date 11/09/24 Admitting Diagnosis Abd pain DS: Discharge Diagnosis Discharge Diagnosis (1) RUQ pain: Code(s): R10.11 - Right upper quadrant pain Status: Acute DS: Summary Hospital Course Hospital Course: 34 yo F with the PMH GERD, Depression and ADHD who presented to the ER on account of Abd pain, noted she was in her usual state of health until midnight when she started having abd pain, upper region, sharp, 8/10 in intensity, constant and worsening, prompting presentation to the ER. no vomiting, diarrhea, chest pain, SOB, dysuria or focal deficits. ER eval vital signs stable and wnl, labs notable for K 3.1, CT AP gallbladder with dilation of the common bile duct. US abd negative Ness's sign, with CBD at the upper limit of normal. Gen surgery was consulted and they will evaluate patient for possible lap ron. Patient was started on IV abx, pain resolved and patient tolerating diet. Gen surgery re-evaluated today and recommended discharged and outpatient follow up for Acute cholecystectomy. Levaquin PO x 7 days per surgery. F/u with PCP in 3-5 days F/u with Gen surgery as instructed Time Spent with Patient Time attestation: Total time spent providing and/or coordinating discharge services: DS: Data Data Completed and Pending Labs on day of discharge: Preliminary micro results at discharge 11/08/24 15:14 Blood Culture - Preliminary Blood 11/08/24 15:14 Blood Culture - Preliminary Blood Discharge Plan Discharge Attending physician on discharge: Simeon Munguia Consulting providers: Sha Rivera Discharging Clinician: Simeon Munguia Anticipated Discharge Date/Time: 11/09/24 16:20 Patient Disposition: Home Activity: no preference Diet: low fat Discharge Instructions: Patient may discharge home today if she tolerates low-fat diet. My office will contact her with information for scheduling a elective laparoscopic cholecystectomy in the near future. If she has recurrent pain similar to what brought her to the emergency room this time she was encouraged to return to the emergency room. She should remain on a low-fat diet and bland diet at home. Levaquin 500mg p.o. daily for her while waiting to get her gallbladder out. Patient Instructions: Antibiotic Form, Cholecystitis (GEN), Gallstones (GEN), Low Fat Diet (GEN), Laparoscopic Cholecystectomy (GEN) Patient Language: Romansh Stand Alone Forms: General Discharge Information Follow-up/Referrals: Sha Rivera MD [Physician] - (Patient to call my office at [phone] if she does not hear about surgery scheduling by Monday11/12/24) Discharge Medications: New levofloxacin 500 mg tablet 500 mg PO DAILY Qty: 7 0RF Continued fluoxetine 20 mg capsule 20 mg PO DAILY Patient Comments: Takes with 40mg tablet once a day to make 60mg total fluoxetine 40 mg capsule 40 mg PO DAILY Patient Comments: pt takes 60 mg daily (one 20 mg tablet and one 40mg tablet) famotidine 20 mg tablet 20 mg PO DAILY dextroamphetamine-amphetamine 20 mg tablet 20 mg PO DAILY Date of admission: 11/08/24 11:15 Primary Care Provider: PHYSICIAN NOT ON STAFF,NONSTAFF Admitting Provider: Simeon Munguia Attending physician on admission: Simeon Munguia Condition: Stable
== END 2024-11-09 17:15 | disposition home or self-care (01) ==
LOC: ANHED 11:15 → ANH3MEDSUR 12:12
PROVIDERS: Emergency Medicine; Admitting Provider Internal Medicine; Emergency Provider Emergency Medicine; Visit Provider Internal Medicine
DX: R10.11 Right upper quadrant pain (principal); K80.20 Calculus of gallbladder without cholecystitis without obstruction; F17.290 Nicotine dependence, other tobacco product, uncomplicated; F90.9 Attention-deficit hyperactivity disorder, unspecified type; F32.A Depression, unspecified; K21.9 Gastro-esophageal reflux disease without esophagitis; Z79.899 Other long term (current) drug therapy
CPT/HCPCS: 36415; 74177; 76705; 80053; 81003; 81025; 83690; 83735; 85025; 87040; 96361; 96365; 96366; 96367; 96374; 96375; 96376; 99285; A9270; G0378; J1836; J1885; J1956; J2270; J2405; J3010; J7030; J7120; Q9967

== ENCOUNTER 2024-11-15 00:08 | Day surgery (SDC) | payer BC, SELFPAY ==
[2024-11-11 16:04] VITALS: BMI 25.5
--- NOTE | 2024-11-11 16:11 | PC.NURSE ---
Report to the Outpatient Waiting Room, entrance under the green pavilion located off [facility], at time _1100_ on date _[id number]_. Planned Procedure Time: _1pm_.? Time changes happen often and if your time is changed the preop area will call you the afternoon before. - You and your visitor will be asked to self-screen and do not enter if you have any COVID symptoms. Please call surgeon if you need to reschedule. - A mask is optional within the hospital at this time. Patients may have clear liquids (water, carbonated beverages, clear teas, apple juice) until 3 hours prior to surgery with a maximum of 20 ounces. - No food from midnight until time of surgery and no smoking, or chewing tobacco (or any form of nicotine). No chewing gum, candy or mints. Take only the following medications with a SIP of water on the morning of surgery: __None___ DO NOT STOP ANY OF YOUR OTHER PRESCRIPTION MEDICATIONS PRIOR TO SURGERY EXCEPT THE FOLLOWING Hold all vitamins and supplements for 3 days per anesthesiologist. Medications to discontinue per physician Date to take last dose Please no make-up, nail wolof, hairspray, perfume, deodorant, or body powder the day of surgery.? No jewelry (including any body piercings) or valuables the day of surgery, leave them at home.? Please take a shower or bath the night before, or the morning of, surgery with an antibacterial soap.? Wear comfortable, loose fitting clothing.? - Jewelry must be removed prior to entering the operating room.? Rings and piercings that are not removed may be cut off. - The hospital will not accept responsibility for valuables.? - Please leave all valuables, including medications, at home the day of surgery. If you are going home after surgery, a licensed fork truck driver must drive you home.? - NO public transportation without another adult if you receive anesthesia. - We recommend that an adult stay with you for 24 hours following discharge. - We also recommend that you do not drive, make important decision, drink alcoholic beverages, or take any drugs that were not prescribed by your health care provider for at least 24 hours after your discharge time. Follow any additional instructions given to you from your surgeon. Telephone instructions given to __Chelsi__and asked if any additional questions and then verbalized understanding. Patient advised to call surgeon office or pre surgery nurse liaison [phone] if any additional questions.
[2024-11-15] VITALS (11 sets, daily range): BP systolic 105–120; BP diastolic 57–78; PULSE 82–108; RESP 14–26; TEMP 36.1–36.6; O2SAT 98–100
--- OUTSIDE RECORDS SUMMARY | 2024-11-15 00:10 | XMS_ITS | Clinical Summary ---
Author Organization [facility] Address [address] [place] [address] Care Team Providers Care Market News Reporter Name Role Phone Ranjit Herrera MD Primary Care Provider [phone] Allergies No known active allergies Medications etonogestreL [...] different from the original. Physical - 01/27 Payable Processor - Hulsen Problem Noted Date Diagnosed Date Attention deficit disorder (ADD) in adult 2024 Mild recurrent major depression 10/07/2016 Tobacco use 10/07/2016 Resolved Problems Problem Noted Date Diagnosed Date Resolved Date Overweight (BMI 25.0-29.9) 10/09/2017 0 01/19/2021 Encounters Date Type Department Care Team Description 10/30/[address] [place] [id number] Ranjit Herrera MD Attention deficit disorder (ADD) in adult 10/22/2024 External Device Data STL ABSTRACTION Provider, Abstract 09/25/2024 External Device Data STL ABSTRACTION Provider, Abstract 09/25/2024 External Device Data STL ABSTRACTION Provider, Abstract 09/24/2024 [facility] Internal Medicine [place] [address] [place] [id number] Ranjit Herrera MD Attention deficit disorder (ADD) in adult 09/14/2024 External Device Data STL ABSTRACTION Provider, Abstract 09/13/2024 External Device Data STL ABSTRACTION Provider, Abstract 09/11/2024 External Device Data STL ABSTRACTION Provider, Abstract 08/28/2024 External Device Data STL ABSTRACTION Provider, Abstract 08/27/2024 2:00 PM SECURITY DEVELOPER Video Visit [address] [place] [address] Ranjit Herrera MD Mild recurrent major depression (Primary Dx); Wellness examination; Declined influenza vaccine; Tobacco use; Acute bronchitis, unspecified organism; Attention deficit disorder (ADD) in adult from Last 3 Months Immunizations Immunization Administration Dates Next Due (Cell [employer])(12 YR UP) COVID-19 VACCINE - EMERGENCY USE AUTHORIZATION, MRNA, [id number](PF) 30 MCG/0.3 ML IM SUSP 04/30/2021,04/09/2021 Family [...] on file Legal Sex Female 4:48 PM SECURITY DEVELOPER Gender Identity Not on file Sexual Orientation Not on file Last Filed Vital Signs Vital Sign Reading Time Taken Comments Blood Pressure 92/70 08/30/2023 4:03 PM SECURITY DEVELOPER Pulse 103 08/30/2023 4:03 PM SECURITY DEVELOPER Temperature 37 C (98.6 F) 08/30/2023 4:03 PM SECURITY DEVELOPER Respiratory Rate - - Oxygen Saturation 96% 08/30/2023 4:03 PM SECURITY DEVELOPER Inhaled Oxygen Concentration - - Weight 80.3 kg (177 lb) 08/27/2024 1:48 PM SECURITY DEVELOPER Height 167.6 cm (5' 6 ) 08/27/2024 1:48 PM SECURITY DEVELOPER Body Mass Index 28.57 08/27/2024 1:48 PM SECURITY DEVELOPER Plan of Treatment Health Maintenance Due Date Last Done Comments DTAP/TDAP/TD VACCINES (1 - Tdap) 2010 HEPATITIS B VACCINES (1 of 3 - 19+ 3-dose series) 2010 HPV/Cotest (21-29) 01/10/2012 HPV/Cotest (30-65) 2021 CERVICAL CANCER SCREENING 04/09/2023 PAP SMEAR 04/09/2023 04/09/2020 (Prev iously completed), 01/08/2016 COVID-19 Vaccine (3 2023- season) 2024 04/30/2021, 04/09/2021 Preventative Visit- Commercial 07/10/2024 01/19/2021, 11/20/2018, 10/09/2017, Additional history exists INFLUENZA VACCINE Completed 08/27/2024 HPV VACCINES Aged Out No longer eligi ble based on patient's age to complete this topic Insurance BLUE ACCESS/TRUE BLUE PPO Care Teams Market News Reporter Relationship Specialty Start Date End Date Ranjit Herrera MD PCP - General Internal Medicine 10/07/16
[2024-11-15] MEDS: ACETAMINOPHEN 500 MG TABLET 1000 MG PO (11:00)
[2024-11-15] MEDS: KETOROLAC 15 MG/ML VIAL (*BKC) IV PUSH ×2 (11:00→14:35)
[2024-11-15] MEDS: fentaNYL CITRATE INJ (*CRX) 100 MCG/2 ML VIAL 50 MCG IV PUSH (11:00)
[2024-11-15] MEDS: LACTATED RINGERS 1,000 ML 30 ML IV CONT ×3 (11:00→14:50)
[2024-11-15 11:35] LABS: Amylase 55 U/L (30-110)
--- NOTE | 2024-11-15 11:39 | WPDHPUPDATE1 ---
History and Physical Update Update Date/Time: 11/15/24 11:39 History and Physical has been reviewed, including an updated exam of the patient. There are NO changes in the patient's condition. Risks, benefits, and alternatives have been discussed and questions answered. Patient agrees to proceed with procedure. Pt recently discharged from hospital. She has symptomatic cholelithiasis. Discussed with her interval lap ron. She wanted to proceed with lap ron, possible open ron today. Risks, benefits, indications, and expected outcomes were discussed with the patient and/or family members. Specific risks to include bleeding and possible need for blood transfusion, infection, bile leak, injury to other organs, common bile duct injury, and conversion to open cholecystectomy has been discussed. I have answered all their questions and they agreed to proceed with surgery as outlined above.
[2024-11-15 12:38] LABS: BEDSIDEPREGUCG Negative (Negative)
--- NOTE | 2024-11-15 13:28 | WPDANESEPPF ---
Anes - Initial Pre Proc Eval Procedure: Operation Date: 11/15/24 12:30 Proposed Procedures p Laparoscopic Cholecystectomy, Possible Open - Sha Rivera MD Date/Time: 11/15/24 13:28 Surgeon: Sha Rivera MD Pre Op Diagnosis: Symp Cholelithiasis Patient Data Age: 34 Gender: F Height: 1.68 m Weight: 75.6 kg Last Vital Signs Temp 36.5 C 11/15/24 11:00 Pulse 94 11/15/24 11:00 Resp 16 11/15/24 11:00 BP 108/64 11/15/24 11:00 Pulse Ox 100 11/15/24 11:00 O2 Del Method Room Air 11/15/24 11:00 Allergies Allergy/AdvReac Type Severity Reaction Status Date / Time No Known Allergies Allergy Unverified 11/15/24 12:27 Home Medications ?Medication ?Instructions ?Recorded ?Confirmed ?Type dextroamphetamine-amphetamine 20 20 mg PO DAILY 11/08/24 11/11/24 History mg tablet famotidine 20 mg tablet 20 mg PO DAILY 11/08/24 11/11/24 History fluoxetine 20 mg capsule 20 mg PO DAILY 11/08/24 11/11/24 History fluoxetine 40 mg capsule 40 mg PO DAILY 11/08/24 11/11/24 History Laboratory Tests 11/15/24 11/15/24 10:41 11:00 Amylase 55 U/L (30-110) POC Urine HCG, Qual Negative (Negative) Patient hx anesthesia problems: none Family hx anesthesia problems: none Results Review: All pre-operative results and documents have been reviewed as part of the pre-operative evaluation. [facility] Social History Social History Years smoked: 15 Smoking status: Never smoker Tobacco type: cigarettes and e-cigarettes/vaping Smoking end date: 11/11/21 Additional smoking assessment comments: Vaping currently. Alcohol intake: never Substance use: never Substance use type: does not use Other substance usage details: uses nicotine vape Do You Feel Safe in your Home?: Yes Lack of Transportation: No Lack of Food: Never True Current Housing: I Have Housing Concerned About Future Housing: No Difficulty Paying Gas/Electric Bills: No Difficulty Paying for Meds: No Currently Unemployed: No Education: Don't Know Difficulty w/ Childcare or Family Care: No Living arrangements: with family Spiritual care concerns: No Anes - Eval Final PreProcedure Day of Procedure 11/15/24 13:28 Patient weight: overweight Heart: regular rate and rhythm Lungs: clear to auscultation Airway: Mallampati scale Neurological: alert and oriented Last oral intake: >/= 8 hours ASA classification: II Emergent: no Anesthetic plan: proceed Anesthesia type and monitoring: general ETT and standard monitoring Results Review: All pre-operative results and documents have been reviewed as part of the pre-operative evaluation. Informed Consent: The patient's anesthetic plan and its attendant risks and benefits were discussed with the patient/family/POA. Questions were solicited and answers provided to the satisfaction of the patient/family/POA.
--- NOTE | 2024-11-15 13:29 | W.PM.PROC2 ---
Procedure Note - Detailed Date of Procedure 11/15/24 Pre-op Diagnosis Symptomatic Cholelithiasis Post-op Diagnosis Other (Acute cholecystitis secondary to cholelithiasis) Procedure Performed Laparoscopic cholecystectomy Surgeon Sha Rivera MD Animal Caregiver Cal Carpio WEB MARKETING ANALYST Anesthesia General Indications Patient is a 34-year-old female who was admitted to the hospital for last week with severe right upper quadrant abdominal pain. Imaging to include CT scan and ultrasound showed only gallstones but no acute cholecystitis. She was discharged from the hospital with plans for interval laparoscopic cholecystectomy today. Findings Patient actually had moderate acute inflammation of gallbladder secondary to gallstones. She did seem to have a gallstone impacted within the neck of the gallbladder. No gangrenous cholecystitis was seen. No abscess or perforation Description of Procedure After informed consent was obtained patient brought to the operating room she was placed supine position and general endotracheal anesthesia was administered. The abdomen was then prepped and draped usual sterile fashion. Time-out was then performed correctly identifying the patient as well as procedure to be performed. She was given perioperative IV antibiotics. I entered the abdomen left upper quadrant utilizing a 5mm Optiview port. Once inside the abdomen insufflated to adequate pneumoperitoneum of 15mmHg of CO2. There were no adhesions around the area the umbilicus so I placed a 5mm trocar port in this area under direct visualization. A laparoscopic switched over to the periumbilical trocar port looking to the upper portion of the abdomen until there was an inflamed gallbladder with omental adhesions. I then stripped down the omental adhesions off of the gallbladder but the gallbladder was distended and thickened with erythema and edema of the gallbladder wall. I needed to decompress the gallbladder we will hold with laparoscopic grasper. I then placed additional trocar ports to include 2 right subcostal 5mm trocar ports and a 10mm epigastric trocar port all under direct visualization. A laparoscopic decompressing needle was then introduced through the most lateral right subcostal trocar port and the dome of the gallbladder was punctured with the decompressing needle. Dark thick bile drained from the gallbladder. I then removed the decompressing the from the gallbladder and then was able to hold the gallbladder with laparoscopic grasper. The gallbladder was then elevated over the right half liver towards right shoulder. I then proceeded to strip down the visceral peritoneum off of the infundibular gallbladder utilizing [place] dissector. The gallstone was reduced out of the neck of the gallbladder. A 2nd grasper was then used to hold the gallbladder at the infundibulum. Then with lateral traction on the infundibular gallbladder I dissected out the cystic duct circumferentially. Cystic artery identified dissected out circumferentially as well. Posterior wall the gallbladder at the infundibulum dissected free liver into the critical view was obtained. At this point I then placed 2 clips proximally cystic duct and 2 clips distally high on infundibular gallbladder. The cystic duct was then divided with Endo Reshma. A similar fashion cystic artery was clipped and divided as well. The gallbladder was then resected off the liver utilized electrocautery. Once it was free of the liver was then placed into an Endo-Catch bag and brought out through the epigastric 10mm trocar port site. Gallbladder and its contents were sent to pathology for examination. I then irrigated out the right upper quadrant the abdomen gallbladder fossa with sterile saline solution. Hemostasis on the gallbladder liver bed was achieved utilized electrocautery. No evidence of bile leak was seen. I then aspirated the fluid from the right upper quadrant the abdomen from the pelvis. I then removed all the trocar ports under direct visualization all port sites appeared hemostatic. I then allowed the abdomen to decompress. All the port sites were then irrigated sterile saline solution. The epigastric 10mm trocar port fascial defect was then closed utilizing 0 Vicryl suture at the fascial level. The skin edges on all the port sites were then approximated utilizing a running subcuticular 4 Monocryl suture. The incisions were then cleaned the skin glue sterile dressings were applied. The patient tolerated the procedure well no complications. All sponges, needles, and instrument counts were correct at the end procedure. EBL was _ 30 __cc. The patient was awakened and taken to recovery in stable and satisfactory condition. Implants None Estimated Blood Loss 30 Drains No Packing No Pathology Yes (Gallbladder to pathology) Complications No immediate complications Condition Stable Disposition PACU [facility] Billing Surgery - Charge Forward: Surgery Billing
[2024-11-15] MEDS: ceFAZolin 2 GM/D5W 50 ML 2 GM/50 ML BAG IVPB (13:30)
[2024-11-15] MEDS: BUPivacaine HCL 0.5% PF 30 ML VIAL INFILTRATE (13:36)
[2024-11-15] MEDS: LIDO 1%/EPINEPHRINE 1:100,000 20 ML VIAL 30 ML INFILTRATE (13:37)
[2024-11-15] MEDS: oxyCODONE HCL (*CRX) 5 MG TAB IR PO (16:31)
== END 2024-11-15 17:20 | disposition home or self-care (01) ==
PROVIDERS: Visit Provider Surgery
PROC: 0FT44ZZ Resection of Gallbladder, Percutaneous Endoscopic Approach (ICD-10-PCS; CPT 47562; principal; 2024-11-15 12:30)
DX: K80.00 Calculus of gallbladder with acute cholecystitis without obstruction (principal); F17.290 Nicotine dependence, other tobacco product, uncomplicated
CPT/HCPCS: 47562; 36415; 82150; 88304; A9270; J0690; J1100; J1885; J2003; J2004; J2250; J2405; J2704; J3010; J7120